=== PATIENT | male | born 1980 | race African-American/Black ===

== ENCOUNTER 2021-10-29 19:12 | Emergency (ER) | payer OTHER ==
[~2021-10-29] VITALS: Ht 172.7 cm; Wt 76.0 kg
[2021-10-29] MEDS ORDERED: ONDANSETRON HCL 4MG/2ML INJ IV STA (19:37)
[2021-10-29 19:39] VITALS: BP 101/65
[2021-10-29] MEDS ORDERED: SODIUM CHLORIDE 0.9% 1,000 ML IV ONE (19:45)
[2021-10-29 20:17] LABS: HEMATOCRIT. 38.7 % (42.0-52.0); HEMOGLOBIN. 13.1 g/dL (14.0-18.0); MEAN CORPUSCULAR HEMOGLOBIN 28.9 pg (28.0-32.0); MEAN CORPUSCULAR VOLUME 85.3 fL (80.0-94.0); MEAN PLATELET VOLUME 8.7 fl (7.4-10.4); PLATELET 260 x1000/uL (130-400); RED BLOOD CELL COUNT 4.54 mill/uL (4.7-6.1); RED CELL DISTRIBUTION WIDTH 15.1 % (11.6-14.6)
[2021-10-29 20:25] LABS: CHLORIDE 107 mEq/L (98-107)
[2021-10-29 20:32] LABS: ETHANOL BLOOD < 10 mg/dL
[2021-10-29 21:42] LABS: CANNABINOID URINE SCREEN PRESUMTIVE POSITIVE (NEGATIVE); METHADONE URINE SCREEN NEGATIVE (NEGATIVE); OPIATES URINE SCREEN NEGATIVE (NEGATIVE); PHENCYCLIDINE URINE SCREEN NEGATIVE (NEGATIVE)
[2021-10-29 21:44] LABS: *AMPHETAMINES SCREEN URINE NEGATIVE (NEGATIVE); *BARBITURATES SCREEN URINE NEGATIVE (NEGATIVE); *BENZODIAZEPINES SCREEN URINE NEGATIVE (NEGATIVE); *COCAINE SCREEN URINE PRESUMTIVE POSITIVE (NEGATIVE)
[2021-10-29 23:22] LABS: PLATELET ESTIMATE NORMAL
== END 2021-10-29 22:29 | disposition home or self-care (01) ==
LOC: ER 19:12
DX: T40.2X1A Poisoning by other opioids, accidental (unintentional), initial encounter (principal); I49.8 Other specified cardiac arrhythmias; M54.30 Sciatica, unspecified side; Y92.9 Unspecified place or not applicable; F19.10 Other psychoactive substance abuse, uncomplicated
CPT/HCPCS: 36415; 80053; 80305; 80320; 82962; 85025; 93005; 96361; 96374; 99284; J2405; J7030; G0480